=== PATIENT | female | born 1990 | race Caucasian/White ===

== ENCOUNTER 2017-04-04 09:28 | Inpatient (IN) | payer OTHER ==
[2017-04-04] VITALS (23 sets, daily range): BP systolic 111–181; BP diastolic 57–84
[~2017-04-04] VITALS: Ht 157.5 cm; Wt 98.9 kg
[~2017-04-04 09:28] MED LIST: ALBUTEROL SULF8.5 GM IH; PREDNISONE10 MG PO; PREDNISONE20 MG PO
[2017-04-04] MEDS ORDERED: ZANTAC150 MG PO (10:15)
[2017-04-04] MEDS ORDERED: SUBOXONE 8 MG-1 EAC2 SL (10:16)
[2017-04-04 10:18] LABS: EOSINOPHIL (%) 4.3 % (0-5); EOSINOPHIL COUNT 0.4 K/uL (0-0.3); HEMATOCRIT 29.2 % (36.0-46.0); IMMATURE GRANULOCYTE (%) 0.6 % (0.0-0.7); IMMATURE GRANULOCYTE COUNT 0.1 K/uL; INSTRUMENT ABS NEUTROPHIL CT 6.3 K/uL; LYMPHOCYTE COUNT 1.7 K/uL (1.0-2.8); MCH 24.7 PG (29.0-34.0); MCHC 32.2 G/DL (30.0-36.0); MCV 76.8 FL (83-99); MONOCYTE (%) 8.9 % (3-12); MONOCYTE COUNT 0.8 K/uL (0-0.8); NEUTROPHIL (%) 67.9 % (45-76); NEUTROPHIL COUNT 6.3 K/uL (1.8-6.4); PLATELET COUNT 229 K/uL (156-360); RBC DIS.WIDTH-CV 13.4 % (11.8-14.6); RBC DIS.WIDTH-SD 37.3 % (39-53); WHITE BLOOD COUNT 9.3 K/uL (4.1-10.2)
[2017-04-04 11:27] LABS: AMPHETAMINE NEGATIVE (500 ng/mL); COCAINE NEGATIVE (150 ng/mL); METHAMPHETAMINE NEGATIVE (500 ng/mL); OPIATES (MORPHINE) NEGATIVE (100 ng/mL); PHENCYCLIDINE NEGATIVE (25 ng/mL); THC CANNABINOIDS NEGATIVE (50 ng/mL)
[2017-04-04 11:28] LABS: BARBITURATES NEGATIVE (200 ng/mL); BENZODIAZEPINES NEGATIVE (150 ng/mL); INTERNAL CONTROLS VALID? YES; METHADONE NEGATIVE (200 ng/mL); OXYCODONE NEGATIVE (100 ng/mL); PROPOXYPHENE NEGATIVE (300 ng/mL); TRICYCLIC ANTIDEPRESSANTS NEGATIVE (300 ng/mL)
[2017-04-05 08:35] VITALS: BP 132/81
[2017-04-05 08:43] LABS: EOSINOPHIL (%) 2.1 % (0-5); EOSINOPHIL COUNT 0.2 K/uL (0-0.3); HEMATOCRIT 25.9 % (36.0-46.0); IMMATURE GRANULOCYTE (%) 0.4 % (0.0-0.7); INSTRUMENT ABS NEUTROPHIL CT 7.9 K/uL; LYMPHOCYTE COUNT 1.8 K/uL (1.0-2.8); MCH 25.4 PG (29.0-34.0); MCHC 32.8 G/DL (30.0-36.0); MCV 77.5 FL (83-99); MEAN PLAT.VOLUME 9.9 uM^3 (9.5-12.4); MONOCYTE (%) 6.6 % (3-12); MONOCYTE COUNT 0.7 K/uL (0-0.8); NEUTROPHIL (%) 73.8 % (45-76); NEUTROPHIL COUNT 7.9 K/uL (1.8-6.4); PLATELET COUNT 196 K/uL (156-360); RBC DIS.WIDTH-CV 13.6 % (11.8-14.6); RBC DIS.WIDTH-SD 38.5 % (39-53); RED BLOOD COUNT 3.34 M/uL (3.80-5.20); WHITE BLOOD COUNT 10.7 K/uL (4.1-10.2)
[2017-04-05 15:29] VITALS: BP 136/76
[2017-04-06 07:38] VITALS: BP 137/59
[2017-04-06] MEDS ORDERED: IBUPROFEN800 MG PO (09:56)
[2017-04-06] MEDS ORDERED: DOCUSATE SODIU100 MG PO (09:56)
[2017-04-06] MEDS ORDERED: FERROCITE324 MG PO (09:59)
[2017-04-06] MEDS ORDERED: CAMILA0.35 MG PO (10:00)
[2017-04-06 14:37] VITALS: BP 137/71
== END 2017-04-06 18:30 | disposition home or self-care (01) | DRG 775 ==
LOC: LDRP-OP → 2WEST 09:29 → LDRP-OP 04-30 16:38
PROVIDERS: Advanced Practice Midwife
PROC: 10E0XZZ Delivery of Products of Conception, External Approach (ICD-10-PCS; principal; 2017-04-04)
PROC: 3E0R3CZ (ICD-10-PCS; principal; 2017-04-04)
PROC: 00HU33Z Insertion of Infusion Device into Spinal Canal, Percutaneous Approach (ICD-10-PCS; principal; 2017-04-04)
PROC: 3E033VJ Introduction of Other Hormone into Peripheral Vein, Percutaneous Approach (ICD-10-PCS; principal; 2017-04-04)
DX: O42.92 Full-term premature rupture of membranes, unspecified as to length of time between rupture and onset of labor (principal); O99.340 Other mental disorders complicating pregnancy, unspecified trimester; O26.03 Excessive weight gain in pregnancy, third trimester; O99.334 Smoking (tobacco) complicating childbirth; O99.513 Diseases of the respiratory system complicating pregnancy, third trimester; F17.200 Nicotine dependence, unspecified, uncomplicated; D50.9 Iron deficiency anemia, unspecified; J45.909 Unspecified asthma, uncomplicated; O87.2 Hemorrhoids in the puerperium; O99.02 Anemia complicating childbirth; F11.90 Opioid use, unspecified, uncomplicated; Z37.0 Single live birth; Z68.30 Body mass index [BMI] 30.0-30.9, adult; Z3A.40 40 weeks gestation of pregnancy; Z88.8 Allergy status to other drugs, medicaments and biological substances
CPT/HCPCS: 85025; C1755; J0571; J3010; J7120